=== PATIENT | male | born 1970 | race Two or more races ===

== ENCOUNTER 2020-11-09 07:01 | Day surgery (SDC) | payer BC ==
[~2020-11-09 07:01] MED LIST: Lactated Ringers 1,000 ML IV SCH
[2020-11-09] MEDS ORDERED: Lidocaine 2% 5 ML SDV ONE (07:22)
[2020-11-09] MEDS ORDERED: Propofol 200 MG/20 ML SDV ONE (07:22)
[2020-11-09] MEDS ORDERED: Midazolam 1 MG/ML 2 ML SDV ONE (07:22)
--- NOTE | 2020-11-09 07:31 | PCM.PREANE ---
Preanesthetic Assessment - Procedure Proposed Procedure: Colonoscopy - Anesthesia/Transfusion/Family Hx Anesthesia History: No Prior Anesthesia Family History of Anesthesia Reaction: No Transfusion History: No Prior Transfusion(s) - Review of Systems General: No Symptoms Pulmonary: No Symptoms Cardiovascular: No Symptoms (HTN, HLD) Gastrointestinal: No Symptoms (GERD, well controlled) Neurological: No Symptoms Other: Reports: Diabetes (NIDDM) - Physical Assessment NPO Status Date: 11/08/20 NPO Status Time: 09:00 Height: 5 ft 7 in Weight: 91.626 kg ASA Class: 2 Mental Status: Alert & Oriented x3 Airway Class: Mallampati = 3 Dentition: Reports: Normal Dentition Thyro-Mental Finger Breadths: 3 Mouth Opening Finger Breadths: 3 ROM/Head Extension: Full Lungs: Clear to Auscultation, Normal Respiratory Effort Cardiovascular: Regular Rate, Regular Rhythm - Allergies Allergies/Adverse Reactions: Allergies Allergy/AdvReac Type Severity Reaction Status Date / Time No Known Allergies Allergy Verified 11/03/20 07:42 - Acknowledgements Anesthesia Type Planned: General Anesthesia Pt an Appropriate Candidate for the Planned Anesthesia: Yes Alternatives and Risks of Anesthesia Discussed w Pt/Guardian: Yes Pt/Guardian Understands and Agrees with Anesthesia Plan: Yes PreAnesthesia Questionnaire HEENT History: Reports: Other (See Below) Other HEENT History: wears glasses Cardiovascular History: Reports: High Cholesterol, Hypertension Respiratory History: Reports: None Gastrointestinal History: Reports: Chronic Constipation, GERD Genitourinary History: Reports: None Musculoskeletal History: Reports: None Neurological History: Reports: None Psychiatric History: Reports: None Endocrine/Metabolic History: Reports: Diabetes, Type II, Obesity/BMI 30+ Hematologic History: Reports: None Immunologic History: Reports: None Oncologic (Cancer) History: Reports: None Dermatologic History: Reports: None - Past Surgical History Head Surgeries/Procedures: Reports: None HEENT Surgical History: Reports: None Cardiovascular Surgical History: Reports: None Respiratory Surgical History: Reports: None GI Surgical History: Reports: None Male Surgical History: Reports: None Endocrine Surgical History: Reports: None Neurological Surgical History: Reports: None Musculoskeletal Surgical History: Reports: None Oncologic Surgical History: Reports: None Dermatological Surgical History: Reports: None - SUBSTANCE USE Tobacco Use Status *Q: Light Tobacco User Tobacco Use Within Last Twelve Months: Cigarettes - HOME MEDS Home Medications: Home Meds Aspirin [Adult Aspirin Regimen] 81 mg PO DAILY 11/03/20 [History] Empagliflozin [Jardiance] 25 mg PO DAILY 11/03/20 [History] Fenofibrate,Micronized [Fenofibrate] 134 mg PO DAILY 11/03/20 [History] Gabapentin [Neurontin] 300 mg PO BEDTIME 11/03/20 [History] Omeprazole 20 mg PO DAILY 11/03/20 [History] Semaglutide [Ozempic] 1 mg SUBCUT WEEKLY 11/03/20 [History] Turmeric 473 mg PO DAILY 11/03/20 [History] atorvaSTATin Calcium [Atorvastatin Calcium] 40 mg PO DAILY 11/03/20 [History] lisinopriL [Lisinopril] 10 mg PO BID 11/03/20 [History] metFORMIN HCl [Metformin HCl] 1,000 mg PO BIDMEALS 11/03/20 [History] polyethylene glycoL 3350 [MiraLAX] 1 dose PO ASDIRECTED PRN 11/03/20 [History] sitaGLIPtin Phosphate [Januvia] 50 mg PO DAILY 11/03/20 [History] tadalafiL [Tadalafil] 20 mg PO ASDIRECTED PRN 11/03/20 [History] - CURRENT (IN HOUSE) MEDS Current Meds: Current Medications Lactated Ringer's (Ringers, Lactated) 1,000 mls @ 125 mls/hr IV ASDIRECTED TERRI Last Admin: 11/09/20 07:20 Dose: 125 mls/hr Documented by:
--- NOTE | 2020-11-09 08:59 | PCM.OPNOTE ---
- General Post-Op/Procedure Note Date of Surgery/Procedure: 11/09/20 Operative Procedure(s): Colonoscopy. polypectomy Findings: Diverticulosis small polyp at 60 cm dictation number [id number] Pre Op Diagnosis: Constipation. Screening Post-Op Diagnosis: Diverticulosis. small polyp at 60 cm Primary Surgeon: Trenton Carrion Pathology: colon polyp Complications: None Condition: Good
--- NOTE | 2020-11-09 09:06 | PCM.POSTAN ---
POST ANESTHESIA ASSESSMENT - MENTAL STATUS Mental Status: Somnolent Free Text/Narrative:: just awakening, responds to commands - VITAL SIGNS Vital Signs: Last Vital Signs Temp 97.2 F 11/09/20 07:20 Pulse 68 11/09/20 09:00 Resp 16 11/09/20 09:00 BP 90/47 L 11/09/20 09:00 Pulse Ox 97 11/09/20 09:00 - RESPIRATORY Respiratory Status: Respiratory Rate WNL, Airway Patent, O2 Saturation Stable - CARDIOVASCULAR CV Status: Pulse Rate WNL, Blood Pressure Stable - GASTROINTESTINAL GI Status: No Symptoms - PAIN Pain Score: 0 - POST OP HYDRATION Hydration Status: Adequate & Stable
--- NOTE | 2020-11-09 09:17 | PCM48HPAN ---
Post Anesthesia Note - EVALUATION WITHIN 48HRS OF ANESTHETIC Vital Signs in Normal Range: Yes Patient Participated in Evaluation: Yes Respiratory Function Stable: Yes Airway Patent: Yes Cardiovascular Function Stable: Yes Hydration Status Stable: Yes Pain Control Satisfactory: Yes Nausea and Vomiting Control Satisfactory: Yes Mental Status Recovered: Yes Vital Signs: Last Vital Signs Temp 97.2 F 11/09/20 07:20 Pulse 63 11/09/20 09:15 Resp 16 11/09/20 09:15 BP 110/71 11/09/20 09:15 Pulse Ox 95 11/09/20 09:15 - COMMENTS/OBSERVATIONS Free Text/Narrative:: Pt doing well post-op. VSS. No apparent anesthetic complications. Dr. Jef Reyes
--- NOTE | 2020-11-09 16:59 | OR ---
SURGEON: JULIANA FRANKLIN MD DATE OF PROCEDURE: 11/09/2020 PREOPERATIVE DIAGNOSIS: Screening colonoscopy and constipation. POSTOPERATIVE DIAGNOSES: 1. Diverticulosis, both right and left-sided, scant. 2. Small polyp at 60 cm. PROCEDURES: 1. Colonoscopy. 2. Cold biopsy polypectomy. PRIMARY SURGEON: Juliana Franklin MD ANESTHESIA: With Anesthesiology. EXTENT OF COLONOSCOPY: To the cecum. BOWEL PREP: Okay. LIMITATION: The patient still had residual what looked like chunks of onion and spinach, but with lot of irrigation and suctioning, these were minimal, although small polyps could have been missed. REASON FOR PROCEDURE: Patient is a pleasant 49-year-old gentleman. He has never had a colonoscopy before. He has an uncle with colon cancer. He says occasionally he will have some blood in the wipes. He does have issue with constipation. He has to take Milk of Magnesia or magnesium citrate about every 2 weeks or so to empty himself out. PROCEDURE IN DETAIL: Physical exam was performed. Major risks and benefits associated with procedure were explained to the patient in detail. Patient verbalized understanding and agreement with the same. Patient was then connected to appropriate monitoring devices and IV started. EKG, pulse oximetry, blood pressure, and capnography were monitored throughout the entire procedure. Continuous oxygen and sedation were provided by the anesthesiologist. The patient was placed in the left lateral decubitus position. Sedation began. After adequate sedation was achieved, digital rectal exam was performed. No rectal masses or polyps felt. Now, a well-lubricated Olympus colonoscope was inserted in the rectum, advanced under visualization to the level of the cecum. The cecum was identified by both visual and anatomic landmarks. Photographs were taken of the cecal cap. The patient did have some residual what looked like chunks of onion and spinach. This was mainly in the cecum area. I did spend quite a bit of time suction and irrigating and moving pieces around, a pretty good look at the cecum, however, small polyps could have been missed. The terminal ileum was also intubated. The scope was withdrawn in a somewhat circular fashion looking at the color, texture, anatomy, and integrity of the mucosa from the cecum to the anal canal. Overall, bowel prep was actually excellent, but he did have these spots where he had accumulation of these small chunks of onions, which had to be irrigated and moved around, but again none of them were attached and did not appear to be hiding any masses, although small one could have been missed. The patient did have scant diverticulosis throughout his whole colon, but mainly in the sigmoid at about 60 cm, what appeared to be right around the descending colons just past the splenic flexure, the patient did have a small polyp around the fold. This was removed with cold biopsy polypectomy. Good hemostasis. Looked to be completely removed. This be a hyperplastic one. Scope was continued to be withdrawn. Scope was retroflexed in the rectum. Scope was completely removed, procedure was terminated. ENDOSCOPIC DIAGNOSES: 1. Diverticulosis. 2. Small polyp at 60 cm. RECOMMENDATIONS: Followup colonoscopy will depend on pathology, but most likely need another one in 5 years. Apparently, sooner if develops signs and symptoms such as change in bowel habits or blood in the stool. ELLEN / FELIZ /[id number]
== END 2020-11-09 09:40 | disposition home or self-care (01) ==
LOC: MW.SDS 07:01
PROVIDERS: ATTEND Surgery
DX: D12.6 Benign neoplasm of colon, unspecified (principal); K57.30 Diverticulosis of large intestine without perforation or abscess without bleeding; E11.9 Type 2 diabetes mellitus without complications; J44.9 Chronic obstructive pulmonary disease, unspecified; N52.9 Male erectile dysfunction, unspecified; E78.5 Hyperlipidemia, unspecified; I10 Essential (primary) hypertension; Z86.16 Personal history of COVID-19; Z79.899 Other long term (current) drug therapy
CPT/HCPCS: 45380; 82947; 88305; J2250; J2704; J7120; 00812

== ENCOUNTER 2021-10-15 07:52 | Emergency (ER) | payer BC, OTHER ==
[2021-10-15] MEDS ORDERED: Acetaminophen/HYDROcodone 325-5 MG Tab PO ONE (09:24)
[2021-10-15] MEDS ORDERED: HYDROmorphone 1 MG/ML Syringe IM ONE (10:19)
== END 2021-10-15 11:20 | disposition home or self-care (01) ==
LOC: MW.ED 07:52
DX: S82.244A Nondisplaced spiral fracture of shaft of right tibia, initial encounter for closed fracture (principal); E78.00 Pure hypercholesterolemia, unspecified; I10 Essential (primary) hypertension; E11.9 Type 2 diabetes mellitus without complications; E66.9 Obesity, unspecified; Z68.32 Body mass index [BMI] 32.0-32.9, adult; Z79.82 Long term (current) use of aspirin; Z79.899 Other long term (current) drug therapy; W22.09XA Striking against other stationary object, initial encounter
CPT/HCPCS: 29505; 73590; 96372; 99283; A9270; J1170

== ENCOUNTER 2021-10-16 08:39 | Inpatient (IN) | payer BC, OTHER ==
[2021-10-16] MEDS ORDERED: Acetaminophen 325 MG Tab PO ONE (10:31)
[2021-10-16] MEDS ORDERED: Iopamidol 755 MG/ML 500 ML Multipack Bottle IVPUSH STA (11:26)
[2021-10-16] MEDS ORDERED: HYDROmorphone 1 MG/ML Syringe IVPUSH ONE ×2 (12:04→16:38)
[2021-10-16 12:47] LABS: CARBON DIOXIDE,CO2 26.4 mmol/L (21.0-32.0); POTASSIUM,K 4.5 mmol/L (3.5-5.1)
[2021-10-16] MEDS ORDERED: Polyethylene Glycol 3350 Powder 17 GM Packet PO PRN (14:32)
[2021-10-16] MEDS ORDERED: Morphine 2 MG/ML SYRINGE IVPUSH PRN (14:32)
[2021-10-16] MEDS ORDERED: Acetaminophen 325 MG Tab PO PRN (14:32)
[2021-10-16] MEDS ORDERED: Ondansetron 4 MG/2 ML SDV IVPUSH PRN (14:32)
[2021-10-16] MEDS ORDERED: Sodium Chloride 0.9% 2.5 ML Syringe FLUSH PRN (14:32)
[2021-10-16] MEDS ORDERED: Sodium Chloride 0.9% 10 ML Syringe FLUSH PRN (14:32)
[2021-10-16] MEDS ORDERED: Pantoprazole 40 MG Tab.CR PO SCH (14:36)
[2021-10-16] MEDS ORDERED: Glucagon,Human Recombinant 1 MG Vial IM PRN (14:37)
[2021-10-16] MEDS ORDERED: 50% Dextrose in Water 50 ML Syringe IVPUSH PRN (14:37)
[2021-10-16] MEDS ORDERED: Ibuprofen 400 MG Tab PO SCH (15:00)
[2021-10-16] MEDS: Enoxaparin 40 MG/0.4 ML Syringe SUBCUT SCH (15:20)
[2021-10-16] MEDS ORDERED: HYDROmorphone 2 MG/ML Syringe IVPUSH PRN ×2 (16:11→16:40)
[2021-10-16] MEDS: Insulin Aspart 100 Units/ML 3 ML Pen SUBCUT SCH (17:10)
[2021-10-16] MEDS ORDERED: Ketorolac 30 MG/ML SDV IVPUSH SCH (17:15)
[2021-10-16] MEDS: Cyclobenzaprine 10 MG Tab PO PRN (18:32)
[2021-10-16] MEDS ORDERED: Gabapentin 300 MG Cap PO SCH (21:00)
[2021-10-16] MEDS: Ketorolac 30 MG/ML SDV IVPUSH SCH (21:06)
[2021-10-16] MEDS: Lisinopril 10 MG Tab PO SCH (21:07)
[2021-10-16] MEDS: Gabapentin 300 MG Cap PO SCH (21:08)
[2021-10-17] MEDS: oxyCODONE 5 MG Tab PO PRN (01:22)
[2021-10-17] MEDS: Ketorolac 30 MG/ML SDV IVPUSH SCH ×4 (03:38→20:47)
[2021-10-17] MEDS: Omeprazole 20 MG Cap.CR PO SCH (06:56)
[2021-10-17] MEDS: Gabapentin 300 MG Cap PO SCH ×3 (06:56→21:01)
[2021-10-17] MEDS: Insulin Aspart 100 Units/ML 3 ML Pen SUBCUT SCH ×3 (07:26→16:49)
[2021-10-17 07:33] LABS: POTASSIUM,K 3.8 mmol/L (3.5-5.1)
[2021-10-17] MEDS: Docusate Sodium 100 MG Cap PO SCH (08:07)
[2021-10-17] MEDS: atorvaSTATin 40 MG Tab PO SCH (08:07)
[2021-10-17] MEDS: Aspirin 81 MG Tab.EC PO SCH (08:07)
[2021-10-17] MEDS: Lisinopril 10 MG Tab PO SCH ×2 (08:09→20:57)
[2021-10-17] MEDS: FENOFIBRATE MICRONIZED 134 MG PO SCH (08:59)
[2021-10-17] MEDS: Cyclobenzaprine 10 MG Tab PO PRN (11:40)
[2021-10-17] MEDS: Enoxaparin 40 MG/0.4 ML Syringe SUBCUT SCH (14:08)
[2021-10-18] MEDS: Ketorolac 30 MG/ML SDV IVPUSH SCH ×2 (03:16→08:45)
[2021-10-18] MEDS: Cyclobenzaprine 10 MG Tab PO PRN ×2 (03:17→12:20)
[2021-10-18 06:36] LABS: CARBON DIOXIDE,CO2 27.5 mmol/L (21.0-32.0); POTASSIUM,K 3.7 mmol/L (3.5-5.1)
[2021-10-18] MEDS: Omeprazole 20 MG Cap.CR PO SCH (06:37)
[2021-10-18] MEDS: Gabapentin 300 MG Cap PO SCH ×2 (06:37→13:10)
[2021-10-18] MEDS: Aspirin 81 MG Tab.EC PO SCH (08:43)
[2021-10-18] MEDS: atorvaSTATin 40 MG Tab PO SCH (08:43)
[2021-10-18] MEDS: Lisinopril 10 MG Tab PO SCH (08:43)
[2021-10-18] MEDS: Docusate Sodium 100 MG Cap PO SCH (08:44)
[2021-10-18] MEDS: Insulin Aspart 100 Units/ML 3 ML Pen SUBCUT SCH ×2 (08:44→13:11)
[2021-10-18] MEDS: FENOFIBRATE MICRONIZED 134 MG PO SCH (08:46)
[2021-10-18] MEDS: oxyCODONE 5 MG Tab PO PRN (12:19)
== END 2021-10-18 13:42 | disposition home or self-care (01) | DRG 342 ==
LOC: MW.ED 08:39 → MW.MS 10:52
PROVIDERS: ADMIT Student in an Organized Health Care Education/Training Program; ATTEND Student in an Organized Health Care Education/Training Program
DX: S82.244A Nondisplaced spiral fracture of shaft of right tibia, initial encounter for closed fracture (principal); I10 Essential (primary) hypertension; E78.5 Hyperlipidemia, unspecified; E11.9 Type 2 diabetes mellitus without complications; Z86.16 Personal history of COVID-19; M62.838 Other muscle spasm; E78.00 Pure hypercholesterolemia, unspecified; E66.9 Obesity, unspecified; Z79.82 Long term (current) use of aspirin; Z79.84 Long term (current) use of oral hypoglycemic drugs; Z79.899 Other long term (current) drug therapy; Z68.32 Body mass index [BMI] 32.0-32.9, adult; Z87.891 Personal history of nicotine dependence; W22.8XXA Striking against or struck by other objects, initial encounter
CPT/HCPCS: 36415; 71275; 71275-26; 80048; 82947; 83735; 85025; 96374; 97116-GP; 97162-GP; 97530-GP; 99217; 99222; 99232; 99284; 99285-25; A9270-GY; J1170; J1650; J1815-GY; J1885; J2270; Q9967; U0002